=== PATIENT | male | born 1995 | race Caucasian/White ===

== ENCOUNTER 2018-05-26 09:20 | Emergency (ER) | payer OTHER ==
[2018-05-26 09:24] VITALS: BP 121/87
--- NOTE | 2018-05-26 10:19 | XRay Report ---
RIGHT FINGERS, 3 VIEWS History: Trauma, pain Findings: Tuft fracture of the distal fourth digit is identified. There also appears to be an associated complex soft tissue injury. This probably represents a crush injury. The remaining fingers and joint spaces are intact. Impression: Tuft fracture, fourth digit.
[2018-05-26] MEDS ORDERED: MOTRIN PO ONE (10:23)
[2018-05-26] MEDS ORDERED: BOOSTRIX IM ONE (10:23)
--- NOTE | 2018-05-26 10:31 | Emergency Department Report ---
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 He crushed his right fourth finger at the distal aspect between a metal gino and a large object. He has moderately severe pain with bleeding. Nail is slightly avulsed. Mild bleeding. MD Complaint: Injury to:: right, finger -: Sudden Other Extremity Injury: Fingers: Right Other Injuries: none Severity scale (0 -10): 7 Improves With: movement Context: direct blow, crush - Related Data Previous Rx's Medication Instructions Recorded Last Taken Type Cephalexin [Keflex] 500 mg PO QID 7 Days #28 capsule 05/26/18 Unknown Rx Allergies Allergy/AdvReac Type Severity Reaction Status Date / Time No Known Allergies Allergy Unverified 05/26/18 09:24 ED Review of Systems ROS: Stated complaint: Finger pain Other details as noted in HPI Constitutional: denies: fever, malaise Neurological: denies: numbness, paresthesias ED Past Medical Hx - Past Medical History Previous Medical History?: No - Surgical History Past Surgical History?: No - Social History Smoking Status: Current Every Day Smoker Substance Use Type: None - Medications Home Medications: Home Medications Medication Instructions Recorded Confirmed Last Taken Type Cephalexin [Keflex] 500 mg PO QID 7 Days #28 capsule 05/26/18 Unknown Rx ED Physical Exam - General Limitations: Language Barrier General appearance: alert, in no apparent distress - Head Head exam: Present: atraumatic, normocephalic - Neurological Exam Neurological exam: Present: alert, oriented X3 - Psychiatric Psychiatric exam: Present: normal affect, normal mood - Other Other exam information: right fouth finger, nail bed laceration with skin completely absent, proximal nail exposed, mild bleeding at 5 mm superficial laceration just adjacent to distal nail, intact sensation, able to flex at PIP, MCP DIP of fourth digit ED Course Vital Signs 05/26/18 09:21 Temperature 99.1 F Pulse Rate 68 Respiratory 18 Rate Blood Pressure 121/87 O2 Sat by Pulse 100 Oximetry ED Medical Decision Making - Radiology Data Radiology results: report reviewed, image reviewed interpreted by me: distal phalanx fx - Medical Decision Making CLosed tuft fx right fourth finger, with nail bed injury, will need to be seen by orthopedic surgeon, TDap given in ED with sterile dressing, finger splint applied under my supervision by ED manufacturing lab technician, MERCEDES, acceptable alignment referred to orthopedic surgeon for definitive treatment, nailbed laceration unable to be repair in ED due to large skin defect rx: cephalexin Critical care attestation.: If time is entered above; I have spent that time in minutes in the direct care of this critically ill patient, excluding procedure time. ED Disposition Clinical Impression: Closed fracture of tuft of distal phalanx of finger, Nailbed avulsion Disposition: TO HOME OR SELFCARE Is pt being admited?: No Does the pt Need Aspirin: No Condition: Stable Instructions: Finger Fracture (ED) Prescriptions: Cephalexin [Keflex] 500 mg PO QID 7 Days #28 capsule Referrals: ASHA JJ MD [Staff Physician] - MIRELA Forms: Work/School Release Form(ED)
[2018-05-26] MEDS ORDERED: KEFLEX PO ONE (10:37)
[2018-05-26] MEDS ORDERED: KEFLEX ONE (10:37)
== END 2018-05-26 11:17 | disposition home or self-care (01) ==
LOC: ED 09:20
DX: S62.634A Displaced fracture of distal phalanx of right ring finger, initial encounter for closed fracture (principal); S61.304A Unspecified open wound of right ring finger with damage to nail, initial encounter; F17.200 Nicotine dependence, unspecified, uncomplicated; W23.0XXA Caught, crushed, jammed, or pinched between moving objects, initial encounter; Y93.89 Activity, other specified; Y92.89 Other specified places as the place of occurrence of the external cause; Y99.8 Other external cause status
CPT/HCPCS: 36415; 80307; 90471; 90715; 99283